=== PATIENT | female | born 1965 | race Two or more races ===

== ENCOUNTER → 2024-12-19 | Outpatient (CLI) | payer BC, SELFPAY ==
--- NOTE | 2024-12-19 11:00 | XR_ITS ---
Examination: Breast ultrasound complete, bilateral Date and time of exam: Grade 4 2024 at 11:40 AM INDICATIONS: Mammogram September 18, 2024 9 mm nodule upper outer left breast 6 mm focal asymmetry outer right breast Technique: Real-time grayscale ultrasonographic imaging bilateral breasts, including all 4 quadrants as well as nipple retroareolar and axillary regions. Findings: Sonographic images right breast 10:00 cyst 4 x 4 millimeter No solid nodules Sonographic images left breast 12:00 cyst 9 x 8 mm No solid nodules IMPRESSION: BI-RADS Category 2: Benign findings
== END | disposition home or self-care (01) ==
PROVIDERS: PCP Nurse Practitioner Family; Referring Provider Nurse Practitioner Family; Visit Provider Nurse Practitioner Family
DX: N60.01 Solitary cyst of right breast (principal); N60.02 Solitary cyst of left breast
CPT/HCPCS: 76641